=== PATIENT | female | born 1965 | race African-American/Black ===

== ENCOUNTER 2020-12-17 12:55 | Emergency (ER) | payer BC ==
[~2020-12-17] VITALS: Ht 170.2 cm; Wt 109.0 kg
[2020-12-17] MEDS ORDERED: BACITRACIN ZINC OINT UDPKT TOP ONE (14:15)
[2020-12-17 14:32] VITALS: BP 130/78
== END 2020-12-17 14:33 | disposition home or self-care (01) ==
LOC: ER 12:55
DX: L02.212 Cutaneous abscess of back [any part, except buttock and flank] (principal); I10 Essential (primary) hypertension
CPT/HCPCS: 99283